=== PATIENT | male | born 1935 | race Asian ===

== ENCOUNTER 2022-12-18 11:42 | Inpatient (IN) | payer MEDICARE, OTHER ==
[~2022-12-18] VITALS: Ht 170.2 cm; Wt 42.6 kg
[2022-12-18] MEDS ORDERED: SOTA80TA PO (12:48)
[2022-12-18] MEDS ORDERED: APIX2.5T PO (12:48)
[2022-12-18] MEDS ORDERED: RANO500T6 PO (12:48)
[2022-12-18] MEDS ORDERED: DONE5TAB34 PO (12:48)
[2022-12-18] MEDS ORDERED: ALBU18HF2 INH (12:48)
[2022-12-18] MEDS ORDERED: MONT10TA22 PO (12:48)
[2022-12-18] MEDS ORDERED: UMEC1BLS INH (12:48)
[2022-12-18] MEDS ORDERED: CITA10TA9 PO (12:48)
[2022-12-18] MEDS ORDERED: OMEP40CA21 PO (12:49)
[2022-12-18] MEDS ORDERED: LORAZEPAM 1 MG TABLET PO PRN (14:30)
[2022-12-18 16:00] VITALS: BP 123/75; TEMP 97.9; O2SAT 100
[2022-12-18] MEDS ORDERED: ACETAMINOPHEN 325 MG TABLET PO PRN (16:30)
[2022-12-18] MEDS ORDERED: MAG HYDROX/AL HYDROX/SIMETH 30 ML UDC PO PRN (16:30)
[2022-12-18] MEDS ORDERED: BLOOD SUGAR DIAGNOSTIC 1 EACH STRIP IN ONE (16:30)
[2022-12-18] MEDS ORDERED: MAGNESIUM HYDROXIDE 30 ML UDC PO PRN (16:30)
[2022-12-18 20:24] VITALS: BP 102/56; TEMP 98.7; O2SAT 100
[2022-12-19 06:36] LABS: CHOLESTEROL 161 mg/dL (<200); HDL CHOLESTEROL 50 mg/dL (40-60); LDL 93 mg/dL (0-99); TRIGLYCERIDES 91 mg/dL (30-150)
[2022-12-19 07:43] LABS: ALANINE AMINOTRANSFERASE 13 U/L (12-78); ALKALINE PHOSPHATASE 49 U/L (46-116); ASPARTATE AMINOTRANSFERASE 31 U/L (15-37); BILIRUBIN,TOTAL 0.5 mg/dL (0.2-1.0); CARBON DIOXIDE 23 mmol/L (21-32); CREATININE 1.2 mg/dL (0.6-1.3); GLUCOSE 95 mg/dL (74-106); UREA NITROGEN, BLOOD 35 mg/dL (7-18)
[2022-12-19 08:00] VITALS: BP 102/72; TEMP 98.4; O2SAT 100
[2022-12-19 08:02] LABS: CHLORIDE 98 mmol/L (98-107); POTASSIUM 3.9 mmol/L (3.5-5.1); SODIUM SERUM 132 mmol/L (136-145)
[2022-12-19] MEDS: risperiDONE 0.25 MG TABLET PO SCH ×2 (10:57→21:06)
[2022-12-19] MEDS ORDERED: ALBUTEROL FS 2.5 MG/0.5 ML VIAL.NEB IH PRN (11:00)
[2022-12-19 12:34] LABS: BASOPHILS # (AUTO) 0.1 K/uL (0.0-0.2); EOSINOPHILS # (AUTO) 0.2 K/uL (0.0-0.7); EOSINOPHILS % (AUTO) 3.2 % (0.0-6.0); HEMATOCRIT 33 % (39-51); HEMOGLOBIN 10.9 g/dL (13.5-17.5); LYMPHOCYTES # (AUTO) 1.8 K/uL (0.8-4.8); LYMPHOCYTES % (AUTO) 24.7 % (20.0-44.0); MEAN CORPUSCULAR HEMOGLOBIN 32 PG (26.0-33.0); MEAN CORPUSCULAR HGB CONC 34 g/dl (31.0-36.0); MEAN CORPUSCULAR VOLUME 97 fL (80-96); MONOCYTES # (AUTO) 0.9 K/uL (0.1-1.30); MONOCYTES % (AUTO) 12.3 % (2.0-12.0); NEUTROPHILS # (AUTO) 4.4 K/uL (1.8-8.9); NEUTROPHILS % (AUTO) 58.8 % (43.0-81.0); PLATELET COUNT (AUTO) 202 K/uL (150-450); RED BLOOD CELL COUNT(AUTO) 3.36 MIL/uL (4.5-6.0); RED CELL DISTRIBUTION WIDTH 14.3 % (11.5-15.0); WHITE BLOOD COUNT (AUTO) 7.4 K/uL (4.3-11.0)
[2022-12-19 16:00] VITALS: BP 117/61; TEMP 97.9; O2SAT 100
[2022-12-19] MEDS: MEMANTINE HCL 5 MG TABLET PO SCH (16:24)
[2022-12-19] MEDS: APIXABAN 2.5 MG TABLET PO SCH (16:25)
[2022-12-19] MEDS: MONTELUKAST SODIUM (10MG) 10 MG TABLET PO SCH (17:03)
[2022-12-19] MEDS ORDERED: BUDESONIDE RESPULE INH 0.5 MG/2 ML AMPUL.NEB IH SCH (19:30)
[2022-12-19] MEDS: ALBUTEROL FS 2.5 MG/0.5 ML VIAL.NEB NEB SCH (19:30)
[2022-12-19] MEDS: IPRATROPIUM NEB FS 0.5 MG/2.5 ML AMPUL.NEB IH SCH (19:30)
[2022-12-19 19:33] LABS: APPEARANCE,URINE CLEAR (CLEAR); BILIRUBIN,URINE 1+ (NEGATIVE); BLOOD, URINE TRACE-INTA Ery/uL (NEGATIVE); COLOR,URINE YELLOW (YELLOW); KETONES,URINE TRACE mg/dL (NEGATIVE); LEUKOCYTE ESTERASE ,URINE NEGATIVE (NEGATIVE); NITRITE, URINE NEGATIVE (NEGATIVE); PH,URINE 6.5 (5.0-8.0); PROTEIN,URINE 1+ mg/dl (NEGATIVE); UGLUCOSE 1+ mg/dL (NEGATIVE)
[2022-12-19 19:38] LABS: ADD URINE CULTURE NO; BACTERIA,URINE RARE /HPF (None Seen); MUCUS,URINE Many /LPF (None Seen); WBC,URINE 0-2 /HPF (0-3)
[2022-12-19 20:47] VITALS: BP 124/62; TEMP 98.3; O2SAT 100
[2022-12-19] MEDS: RANOLAZINE 500 MG TAB.ER.12H PO SCH (21:05)
[2022-12-20] VITALS (8 sets, daily range): BP systolic 100–135; BP diastolic 62–72; TEMP 98.1–98.9; O2SAT 97–100
[2022-12-20] MEDS: IPRATROPIUM NEB FS 0.5 MG/2.5 ML AMPUL.NEB IH SCH ×4 (02:42→20:27)
[2022-12-20] MEDS: ALBUTEROL FS 2.5 MG/0.5 ML VIAL.NEB NEB SCH ×4 (02:42→20:27)
[2022-12-20] MEDS: PANTOPRAZOLE 40 MG TABLET.DR PO SCH (08:49)
[2022-12-20] MEDS: CITALOPRAM HYDROBROMIDE 20 MG TABLET PO SCH (08:49)
[2022-12-20] MEDS: risperiDONE 0.25 MG TABLET PO SCH ×2 (08:49→21:03)
[2022-12-20] MEDS: DONEPEZIL 5 MG TABLET PO SCH (08:49)
[2022-12-20] MEDS: MEMANTINE HCL 5 MG TABLET PO SCH ×2 (08:49→17:04)
[2022-12-20] MEDS: APIXABAN 2.5 MG TABLET PO SCH ×2 (08:50→17:05)
[2022-12-20] MEDS: RANOLAZINE 500 MG TAB.ER.12H PO SCH ×2 (08:50→21:03)
[2022-12-20] MEDS: SOTALOL HCL 80 MG TABLET PO SCH (09:00)
[2022-12-20] MEDS: ENSURE ENLIVE 237 ML LIQUID (VANILLA) PO SCH ×2 (12:43→17:03)
[2022-12-20] MEDS: MONTELUKAST SODIUM (10MG) 10 MG TABLET PO SCH (17:04)
[2022-12-21] MEDS: ALBUTEROL FS 2.5 MG/0.5 ML VIAL.NEB NEB SCH ×4 (01:30→20:26)
[2022-12-21] MEDS: IPRATROPIUM NEB FS 0.5 MG/2.5 ML AMPUL.NEB IH SCH ×4 (01:30→20:26)
[2022-12-21 08:00] VITALS: BP 119/63; TEMP 98.1; O2SAT 94
[2022-12-21] MEDS: ENSURE ENLIVE 237 ML LIQUID (VANILLA) PO SCH ×3 (09:07→17:01)
[2022-12-21] MEDS: CITALOPRAM HYDROBROMIDE 20 MG TABLET PO SCH (09:10)
[2022-12-21] MEDS: MEMANTINE HCL 5 MG TABLET PO SCH ×2 (09:10→17:03)
[2022-12-21] MEDS: DONEPEZIL 5 MG TABLET PO SCH (09:11)
[2022-12-21] MEDS: PANTOPRAZOLE 40 MG TABLET.DR PO SCH (09:11)
[2022-12-21] MEDS: risperiDONE 0.25 MG TABLET PO SCH ×2 (09:11→20:58)
[2022-12-21] MEDS: RANOLAZINE 500 MG TAB.ER.12H PO SCH ×2 (09:12→20:58)
[2022-12-21] MEDS: APIXABAN 2.5 MG TABLET PO SCH ×2 (09:12→17:03)
[2022-12-21] MEDS: SOTALOL HCL 80 MG TABLET PO SCH (09:14)
[2022-12-21 16:00] VITALS: BP 113/82; TEMP 98; O2SAT 98
[2022-12-21] MEDS: MONTELUKAST SODIUM (10MG) 10 MG TABLET PO SCH (17:03)
[2022-12-21 20:00] VITALS: BP 114/68; TEMP 98.3; O2SAT 97
[2022-12-21 20:26] VITALS: O2SAT 98
[2022-12-21 20:36] VITALS: O2SAT 99
[2022-12-22] MEDS: ALBUTEROL FS 2.5 MG/0.5 ML VIAL.NEB NEB SCH ×4 (01:30→20:22)
[2022-12-22] MEDS: IPRATROPIUM NEB FS 0.5 MG/2.5 ML AMPUL.NEB IH SCH ×4 (01:30→20:22)
[2022-12-22] MEDS: SOTALOL HCL 80 MG TABLET PO SCH (09:00)
[2022-12-22] MEDS: RANOLAZINE 500 MG TAB.ER.12H PO SCH ×2 (09:58→21:24)
[2022-12-22] MEDS: ENSURE ENLIVE 237 ML LIQUID (VANILLA) PO SCH ×3 (09:58→18:33)
[2022-12-22] MEDS: CITALOPRAM HYDROBROMIDE 20 MG TABLET PO SCH (10:00)
[2022-12-22] MEDS: MEMANTINE HCL 5 MG TABLET PO SCH ×2 (10:00→18:35)
[2022-12-22] MEDS: DONEPEZIL 5 MG TABLET PO SCH (10:00)
[2022-12-22] MEDS: risperiDONE 0.25 MG TABLET PO SCH ×2 (10:00→21:24)
[2022-12-22] MEDS: APIXABAN 2.5 MG TABLET PO SCH ×2 (10:01→18:35)
[2022-12-22] MEDS: PANTOPRAZOLE 40 MG TABLET.DR PO SCH (10:01)
[2022-12-22] MEDS: MONTELUKAST SODIUM (10MG) 10 MG TABLET PO SCH (18:35)
[2022-12-22 20:14] VITALS: BP 107/58; TEMP 97.9; O2SAT 97
[2022-12-22 20:22] VITALS: O2SAT 99
[2022-12-22 20:36] VITALS: O2SAT 99
[2022-12-22] MEDS: ZOLPIDEM TARTRATE 5 MG TABLET PO PRN (23:03)
[2022-12-23] MEDS: IPRATROPIUM NEB FS 0.5 MG/2.5 ML AMPUL.NEB IH SCH ×4 (01:30→20:19)
[2022-12-23] MEDS: ALBUTEROL FS 2.5 MG/0.5 ML VIAL.NEB NEB SCH ×4 (01:30→20:19)
[2022-12-23 08:00] VITALS: BP 138/50; TEMP 97.9; O2SAT 100
[2022-12-23] MEDS: ENSURE ENLIVE 237 ML LIQUID (VANILLA) PO SCH ×3 (08:24→17:20)
[2022-12-23] MEDS: PANTOPRAZOLE 40 MG TABLET.DR PO SCH (08:24)
[2022-12-23] MEDS: RANOLAZINE 500 MG TAB.ER.12H PO SCH ×2 (08:24→20:12)
[2022-12-23] MEDS: CITALOPRAM HYDROBROMIDE 20 MG TABLET PO SCH (08:24)
[2022-12-23] MEDS: risperiDONE 0.25 MG TABLET PO SCH ×2 (08:24→20:12)
[2022-12-23] MEDS: DONEPEZIL 5 MG TABLET PO SCH (08:24)
[2022-12-23] MEDS: MEMANTINE HCL 5 MG TABLET PO SCH ×2 (08:24→17:37)
[2022-12-23] MEDS: APIXABAN 2.5 MG TABLET PO SCH ×2 (08:34→17:38)
[2022-12-23] MEDS: SOTALOL HCL 80 MG TABLET PO SCH (08:50)
[2022-12-23 16:00] VITALS: BP 105/59; TEMP 98.7; O2SAT 96
[2022-12-23] MEDS: MONTELUKAST SODIUM (10MG) 10 MG TABLET PO SCH (17:37)
[2022-12-23 20:09] VITALS: BP 138/72; TEMP 97.6; O2SAT 100
[2022-12-23 20:25] VITALS: O2SAT 96
[2022-12-23 20:37] VITALS: O2SAT 99
[2022-12-23] MEDS: ZOLPIDEM TARTRATE 5 MG TABLET PO PRN (21:50)
[2022-12-24] VITALS (7 sets, daily range): BP systolic 116–132; BP diastolic 51–57; TEMP 98.2–98.7; O2SAT 96–100
[2022-12-24] MEDS: IPRATROPIUM NEB FS 0.5 MG/2.5 ML AMPUL.NEB IH SCH ×4 (01:30→20:25)
[2022-12-24] MEDS: ALBUTEROL FS 2.5 MG/0.5 ML VIAL.NEB NEB SCH ×4 (01:30→20:25)
[2022-12-24] MEDS: MEMANTINE HCL 5 MG TABLET PO SCH ×2 (08:04→17:40)
[2022-12-24] MEDS: risperiDONE 0.25 MG TABLET PO SCH ×2 (08:04→20:13)
[2022-12-24] MEDS: RANOLAZINE 500 MG TAB.ER.12H PO SCH ×2 (08:06→20:14)
[2022-12-24] MEDS: DONEPEZIL 5 MG TABLET PO SCH (08:06)
[2022-12-24] MEDS: PANTOPRAZOLE 40 MG TABLET.DR PO SCH (08:06)
[2022-12-24] MEDS: ENSURE ENLIVE 237 ML LIQUID (VANILLA) PO SCH ×3 (08:07→17:49)
[2022-12-24] MEDS: APIXABAN 2.5 MG TABLET PO SCH ×2 (08:11→17:41)
[2022-12-24] MEDS: SOTALOL HCL 80 MG TABLET PO SCH (08:23)
[2022-12-24] MEDS: CITALOPRAM HYDROBROMIDE 20 MG TABLET PO SCH (08:26)
[2022-12-24] MEDS: MONTELUKAST SODIUM (10MG) 10 MG TABLET PO SCH (17:40)
[2022-12-25] VITALS (7 sets, daily range): BP systolic 126–147; BP diastolic 59–64; TEMP 97.7–98.1; O2SAT 96–100
[2022-12-25] MEDS: IPRATROPIUM NEB FS 0.5 MG/2.5 ML AMPUL.NEB IH SCH ×4 (01:30→20:49)
[2022-12-25] MEDS: ALBUTEROL FS 2.5 MG/0.5 ML VIAL.NEB NEB SCH ×4 (01:30→20:49)
[2022-12-25] MEDS: PANTOPRAZOLE 40 MG TABLET.DR PO SCH (07:30)
[2022-12-25 07:48] LABS: CALCIUM, SERUM 9.1 mg/dL (8.5-10.1); CARBON DIOXIDE 27 mmol/L (21-32); CHLORIDE 103 mmol/L (98-107); CREATININE 1.1 mg/dL (0.6-1.3); GLUCOSE 97 mg/dL (74-106); POTASSIUM 4.5 mmol/L (3.5-5.1); SODIUM SERUM 137 mmol/L (136-145); UREA NITROGEN, BLOOD 40 mg/dL (7-18)
[2022-12-25] MEDS: ENSURE ENLIVE 237 ML LIQUID (VANILLA) PO SCH ×3 (08:43→17:49)
[2022-12-25] MEDS: SOTALOL HCL 80 MG TABLET PO SCH (08:44)
[2022-12-25] MEDS: CITALOPRAM HYDROBROMIDE 20 MG TABLET PO SCH (08:44)
[2022-12-25] MEDS: MEMANTINE HCL 5 MG TABLET PO SCH ×2 (08:45→17:49)
[2022-12-25] MEDS: APIXABAN 2.5 MG TABLET PO SCH ×2 (08:45→17:50)
[2022-12-25] MEDS: risperiDONE 0.25 MG TABLET PO SCH ×2 (08:45→21:00)
[2022-12-25] MEDS: RANOLAZINE 500 MG TAB.ER.12H PO SCH ×2 (08:45→21:00)
[2022-12-25] MEDS: DONEPEZIL 5 MG TABLET PO SCH (08:45)
[2022-12-25] MEDS: MONTELUKAST SODIUM (10MG) 10 MG TABLET PO SCH (17:49)
[2022-12-26] MEDS: ALBUTEROL FS 2.5 MG/0.5 ML VIAL.NEB NEB SCH ×4 (01:20→19:30)
[2022-12-26] MEDS: IPRATROPIUM NEB FS 0.5 MG/2.5 ML AMPUL.NEB IH SCH ×4 (01:20→19:30)
[2022-12-26 08:00] VITALS: BP 136/61; TEMP 97.9; O2SAT 95
[2022-12-26] MEDS: ENSURE ENLIVE 237 ML LIQUID (VANILLA) PO SCH ×4 (08:00→17:23)
[2022-12-26] MEDS: risperiDONE 0.25 MG TABLET PO SCH ×2 (08:47→21:18)
[2022-12-26] MEDS: RANOLAZINE 500 MG TAB.ER.12H PO SCH ×2 (08:48→21:18)
[2022-12-26] MEDS: APIXABAN 2.5 MG TABLET PO SCH ×2 (08:48→16:28)
[2022-12-26] MEDS: CITALOPRAM HYDROBROMIDE 20 MG TABLET PO SCH (08:48)
[2022-12-26] MEDS: PANTOPRAZOLE 40 MG TABLET.DR PO SCH (08:48)
[2022-12-26] MEDS: MEMANTINE HCL 5 MG TABLET PO SCH ×2 (08:49→16:28)
[2022-12-26] MEDS: SOTALOL HCL 80 MG TABLET PO SCH (08:49)
[2022-12-26] MEDS: DONEPEZIL 5 MG TABLET PO SCH (08:49)
[2022-12-26 16:00] VITALS: BP 148/65; TEMP 98.1; O2SAT 98
[2022-12-26] MEDS: MONTELUKAST SODIUM (10MG) 10 MG TABLET PO SCH (17:23)
[2022-12-26 20:00] VITALS: BP 133/51; TEMP 98.4; O2SAT 97
[2022-12-26 20:41] VITALS: O2SAT 95
[2022-12-26 20:56] VITALS: O2SAT 97; O2SAT 98
[2022-12-27] MEDS: IPRATROPIUM NEB FS 0.5 MG/2.5 ML AMPUL.NEB IH SCH ×3 (01:30→13:34)
[2022-12-27] MEDS: ALBUTEROL FS 2.5 MG/0.5 ML VIAL.NEB NEB SCH ×3 (01:30→13:34)
[2022-12-27 07:26] VITALS: O2SAT 98
[2022-12-27] MEDS: PANTOPRAZOLE 40 MG TABLET.DR PO SCH (07:30)
[2022-12-27 07:41] VITALS: O2SAT 98
[2022-12-27 08:00] VITALS: BP 100/62; TEMP 97.6; O2SAT 99
[2022-12-27] MEDS: ENSURE ENLIVE 237 ML LIQUID (VANILLA) PO SCH ×2 (08:41→12:21)
[2022-12-27] MEDS: CITALOPRAM HYDROBROMIDE 20 MG TABLET PO SCH (08:43)
[2022-12-27] MEDS: DONEPEZIL 5 MG TABLET PO SCH (08:43)
[2022-12-27] MEDS: risperiDONE 0.25 MG TABLET PO SCH (08:43)
[2022-12-27] MEDS: MEMANTINE HCL 5 MG TABLET PO SCH (08:44)
[2022-12-27] MEDS: APIXABAN 2.5 MG TABLET PO SCH (08:44)
[2022-12-27] MEDS: RANOLAZINE 500 MG TAB.ER.12H PO SCH (08:44)
[2022-12-27 08:45] VITALS: BP 100/62
[2022-12-27] MEDS: SOTALOL HCL 80 MG TABLET PO SCH (08:45)
[2022-12-27 13:34] VITALS: O2SAT 99
[2022-12-27 13:45] VITALS: O2SAT 99
== END 2022-12-27 14:45 | DRG 881 ==
LOC: GPS 12:34
PROVIDERS: ADMIT Psychiatry & Neurology Psychiatry; ATTEND Nurse Practitioner Acute Care
DX: F32.A Depression, unspecified (principal); Z68.1 Body mass index [BMI] 19.9 or less, adult; F03.93 Unspecified dementia, unspecified severity, with mood disturbance; F03.918 Unspecified dementia, unspecified severity, with other behavioral disturbance; G93.40 Encephalopathy, unspecified; F03.911 Unspecified dementia, unspecified severity, with agitation; F29 Unspecified psychosis not due to a substance or known physiological condition; Z20.822 Contact with and (suspected) exposure to COVID-19; R73.03 Prediabetes; Z91.199 Patient's noncompliance with other medical treatment and regimen due to unspecified reason
CPT/HCPCS: 36415; 80048-TC; 80053-TC; 80061-TC; 81001; 85025-TC; 87081-TC; 94799-TC; 97112-TC; 97116-TC; 97530-TC